=== PATIENT | male | born 1960 | race Caucasian/White ===

== ENCOUNTER 2018-02-20 09:36 | Inpatient (IN) | payer MEDICARE, OTHER ==
[~2018-02-20] VITALS: Ht 175.3 cm; Wt 83.7 kg
[2018-02-20] VITALS (14 sets, daily range): BP systolic 126–155; BP diastolic 72–92
--- NOTE | 2018-02-20 09:42 | NUR ---
[id number] FROM [facility]: SOB, HYPOXIA, COUGH, CONGESTION. ALBUTEROL 5 GIVEN IN ROUTE BY RA. A/O X4. POSITIVE PRODUCTIVE COUGH. POSITIVE WHEEZING . POSITIVE ACCESSORY MUSCLE USE. 02 SAT INCREASE FROM 85% ROOM AIR TO 96% WITH ALBUTEROL NEB TX. SAFETY MEASURE IN PLACE. CALL LIGHT WITHIN REACH.
[2018-02-20] MEDS ORDERED: DEXAMETHASONE SOD PHOSPHATE 10 MG/ML VIAL ONE (09:57)
[2018-02-20] MEDS ORDERED: ALPRAZOLAM 0.5 MG TABLET ONE (09:58)
[2018-02-20] MEDS ORDERED: HYDROCODONE/APAP 5/325MG 1 EACH TABLET ONE (09:58)
[2018-02-20] MEDS ORDERED: VANCOMYCIN 1 GM in IV D5W 250 ML IV ONE (10:00)
[2018-02-20] MEDS ORDERED: HYDROCODONE/APAP 5/325MG 1 EACH TABLET PO ONE (10:00)
[2018-02-20] MEDS ORDERED: ALBUTEROL FS 2.5 MG/3 ML VIAL.NEB NEB ONE (10:00)
[2018-02-20] MEDS ORDERED: ALPRAZOLAM 0.5 MG TABLET PO ONE (10:00)
[2018-02-20] MEDS ORDERED: IV NS 0.9% 1,000 ML BAG IV ONE (10:00)
[2018-02-20] MEDS ORDERED: IPRATROPIUM NEB FS 0.5 MG/2.5 ML AMPUL.NEB NEB ONE (10:00)
[2018-02-20] MEDS ORDERED: DEXAMETHASONE SOD PHOSPHATE 10 MG/ML VIAL IV ONE (10:00)
[2018-02-20] MEDS ORDERED: LEVOFLOXACIN 750 MG /D5W 150ML 150 ML IV ONE ×2 (10:00→10:57)
[2018-02-20 10:01] LABS: BASOPHILS # (AUTO) 0.1 /CMM (0.0-0.2); BASOPHILS % (AUTO) 0.6 % (0.0-2.0); EOSINOPHILS % (AUTO) 0.4 % (0.0-6.0); HEMATOCRIT 48 % (39-51); HEMOGLOBIN 16.4 g/dL (13.5-17.5); LYMPHOCYTES # (AUTO) 3.2 /CMM (0.8-4.8); LYMPHOCYTES % (AUTO) 26.4 % (20.0-44.0); MEAN CORPUSCULAR HGB CONC 35 g/dl (31.0-36.0); MEAN CORPUSCULAR VOLUME 96 fL (80-96); MONOCYTES # (AUTO) 1.4 /CMM (0.1-1.30); MONOCYTES % (AUTO) 11.5 % (2.0-12.0); NEUTROPHILS # (AUTO) 7.2 /CMM (1.8-8.9); NEUTROPHILS % (AUTO) 61.1 % (43.0-81.0); PLATELET COUNT (AUTO) 193 /CMM (150-450); RED BLOOD CELL COUNT(AUTO) 4.95 MIL/uL (4.5-6.0); WHITE BLOOD COUNT (AUTO) 11.9 K/uL (4.3-11.0)
[2018-02-20] MEDS ORDERED: ALBUTEROL FS 2.5 MG/3 ML VIAL.NEB ONE (10:01)
[2018-02-20] MEDS ORDERED: IPRATROPIUM NEB FS 0.5 MG/2.5 ML AMPUL.NEB ONE (10:01)
--- NOTE | 2018-02-20 10:01 | NUR ---
RT AT BEDSIDE FOR BREATHING TX.
--- NOTE | 2018-02-20 10:07 | NUR ---
18G RFA. GOOD FLUSH GOOD BLOOD RETURN.
[2018-02-20 10:11] LABS: CALCIUM, SERUM 9.3 mg/dL (8.5-10.1); CARBON DIOXIDE 25 mmol/L (21-32); CHLORIDE 100 mmol/L (98-107); CREATININE 0.8 mg/dL (0.6-1.3); GLUCOSE 134 mg/dL (74-106); POTASSIUM 3.6 mmol/L (3.5-5.1); SODIUM SERUM 136 mmol/L (136-145); UREA NITROGEN, BLOOD 11 mg/dL (7-18)
[2018-02-20 10:15] LABS: INR 0.88 (0.85-1.15)
[2018-02-20 10:16] LABS: ALANINE AMINOTRANSFERASE 63 U/L (12-78); ALBUMIN 3.6 g/dL (3.4-5.0); ALKALINE PHOSPHATASE 44 U/L (46-116); ASPARTATE AMINOTRANSFERASE 27 U/L (15-37); BILIRUBIN,DIRECT 0.2 mg/dL (0.0-0.2); BILIRUBIN,TOTAL 0.7 mg/dL (0.2-1.0)
[2018-02-20 10:18] LABS: TROPONIN I < 0.017 ng/mL (0.00-0.056)
--- NOTE | 2018-02-20 10:36 | NUR ---
PAGED DR. ARNOLD'S OFFICE
[2018-02-20] MEDS ORDERED: IMIP25TA6 PO (10:37)
[2018-02-20] MEDS ORDERED: NA P133E RC (10:37)
[2018-02-20] MEDS ORDERED: HYDR-552 PO (10:37)
[2018-02-20] MEDS ORDERED: DIVA-78 PO (10:37)
[2018-02-20] MEDS ORDERED: ACET325T53 PO (10:37)
[2018-02-20] MEDS ORDERED: TAMS0.4C34 PO (10:37)
[2018-02-20] MEDS ORDERED: ALPR2TAB7 PO (10:37)
[2018-02-20] MEDS ORDERED: OLAN5TAB3 PO (10:37)
[2018-02-20] MEDS ORDERED: ZOLP10TA6 PO (10:37)
[2018-02-20] MEDS ORDERED: OMEP20TA5 PO (10:37)
[2018-02-20] MEDS ORDERED: BISA10SU61 RC (10:37)
[2018-02-20] MEDS ORDERED: FOLI1TAB16 PO (10:37)
[2018-02-20] MEDS ORDERED: MAGN400O6 PO (10:37)
[2018-02-20] MEDS ORDERED: TOLT4CAP PO (10:37)
--- NOTE | 2018-02-20 10:52 | NUR ---
PATIENT STILL VERY TACHYPNIC, TACHYCARDIC. BREATHING HEAVY. MD INFORMED. PLACED ON 10L OXYGEN VIA SIMPLE MASK AT THIS TIME. ABG ORDERED, WILL RE-EVALUATE.
--- NOTE | 2018-02-20 11:14 | NUR ---
RT AT BEDSIDE FOR BIPAP.
[2018-02-20 11:26] LABS: ABG BASE EXCESS -4.4 mmol/L; ABG OXYGEN SATURATION 93.7 % (92.0-98.5); ABG PCO2 42.1 mmHg (35.0-45.0); ABG PH 7.324 (7.350-7.450); ABG PO2 78.5 mmHg (75.0-100.0); AaDO2 375.3 mmHg; COHb 2.3 % (0.5-1.5); MetHb 0.4 % (0.0-1.5); O2Hb 91.2 % (94.0-97.0); SITE, ABG Right Radial; VENT MODE, BG SIMPLE MASK
--- NOTE | 2018-02-20 11:29 | NUR ---
RT NOTE: LATE ENTRY- ALERT PATIENT FOUND WITH INCREASE WOB,TACHYCARDIC, AND HYPOXIC. ABG DRAWN AND REPORTED. PATIENT PLACED ON BIPAP PER 'S ORDER. PATIENT IS NOW MORE COMFORTABLE AT THIS TIME. CE05=008% AND BK=750.
[2018-02-20 11:48] LABS: APPEARANCE,URINE Clear (CLEAR); BILIRUBIN,URINE Negative (NEGATIVE); BLOOD, URINE Negative Ery/uL (NEGATIVE); COLOR,URINE Yellow (YELLOW); KETONES,URINE Trace (NEGATIVE); LEUKOCYTE ESTERASE ,URINE Negative (NEGATIVE); NITRITE, URINE Negative (NEGATIVE); PROTEIN,URINE Negative (NEGATIVE); UGLUCOSE Negative (NEGATIVE)
[2018-02-20 11:58] LABS: BACTERIA,URINE None seen /HPF (None Seen); RBC,URINE 0-2 /HPF (0-2); SQUAMOUS EPITHELIAL CELL,UR Few /HPF (None Seen); WBC,URINE 0-3 /HPF (0-3)
--- NOTE | 2018-02-20 12:13 | NUR ---
ASSIGNED TO ICU RM#: [id number] DX: RESPIRATORY FAILURE ACCEPTING MD: WILLIAM
--- NOTE | 2018-02-20 12:17 | NUR ---
REPORT GIVEN TO ADRIEL MALLOY FOR JEWELL UPON ADMISSION.
[2018-02-20 12:39] LABS: ABG BASE EXCESS -3.4 mmol/L; ABG OXYGEN SATURATION 96.4 % (92.0-98.5); ABG PCO2 39.7 mmHg (35.0-45.0); ABG PH 7.357 (7.350-7.450); AaDO2 215.8 mmHg; COHb 1.7 % (0.5-1.5); MetHb 0.5 % (0.0-1.5); O2Hb 94.3 % (94.0-97.0); SITE, ABG Right Radial; VENT MODE, BG BIPAP 15/5
--- NOTE | 2018-02-20 12:50 | NUR ---
PATIENT TRANSPORTED TO [facility] VIA ACLS PROTOCOL. RNADRIEL TO PROVIDE JEWELL.
--- NOTE | 2018-02-20 13:00 | NUR ---
PATIENT ADMITTED FROM ER WITH DX OF RESPIRATORY FAILURE, ACUTE RESCUE BIPAP. AWAKE, ALERT AND ORIENTED. VERBALIZED IMPROVED BREATHING. CONNECTED TO BIPAP BY RT.
[2018-02-20] MEDS ORDERED: IPRATROPIUM NEB FS 0.5 MG/2.5 ML AMPUL.NEB NEB PRN (14:00)
[2018-02-20] MEDS ORDERED: ALBUTEROL FS 2.5 MG/0.5 ML VIAL.NEB NEB PRN (14:00)
--- NOTE | 2018-02-20 14:00 | NUR ---
WEANED OFF BIPAP BY RT. PLACED ON O2 AT 6 L N/C. HOB ELEVATED. SPO2 >95%.
[2018-02-20] MEDS ORDERED: BISACODYL SUPP (10 MG) 10 MG/SUPP.RECT SUPP.RECT RC PRN (15:00)
[2018-02-20] MEDS ORDERED: NA PHOS,M-B/NA PHOS,DI-BA 1 EA ENEMA RC PRN (15:00)
[2018-02-20] MEDS: DIVALPROEX SODIUM 500 MG TABLET.DR PO SCH (16:40)
[2018-02-20] MEDS: methylPREDNISolone SOD SUCC 40 MG/ML VIAL IV SCH (16:40)
[2018-02-20] MEDS: ALPRAZOLAM 1 MG TABLET PO SCH (16:41)
[2018-02-20] MEDS: OLANZAPINE 5 MG TABLET PO SCH (16:41)
[2018-02-20] MEDS: TAMSULOSIN 0.4 MG CAP.SR.24H PO SCH (17:17)
[2018-02-20] MEDS: ZOSYN IVPB 3.375 G in IV D5W 50ml IV SCH ×2 (17:17→23:45)
--- NOTE | 2018-02-20 18:00 | NUR ---
REMAINS OFF BIPAP. NO VERBAL C/O SOB. SPO2>94%. NO DISTRESS NOTED.
[2018-02-20] MEDS: HYDROCODONE/APAP 5/325MG 1 EACH TABLET PO PRN ×2 (18:01→23:46)
--- NOTE | 2018-02-20 19:30 | NUR ---
RN NOTE RECEIVED PT ASLEEP ON BED, BREATHING EVEN AND UNLABORED. TOLERATED O2 6LPM VIA NC SATURATING 94% AOX3 RESPONSIVE TO TACTILE AND VERBAL STIMULI. ABLE TO VERBALIZED NEEDS WHEN AWAKE. TELE MONITOR READS SR HR 80 IV SITE ON LFA AND RFA G 18 INTACT AND PATENT. AFEBRILE. KEPT PT CLEAN AND DRY. CALL LIGHT KEPT WITHIN EASY REACH. WILL CONTINUE TO MONITOR.
--- NOTE | 2018-02-20 21:24 | NUR ---
PT ON 6L NC. NO SOB. O2 SAT 95%. PT IS SLEEPING. WILL CONTINUE TO MONITOR. BIPAP S/B.
[2018-02-20] MEDS ORDERED: MAGNESIUM HYDROXIDE 30 ML UDC PO PRN (22:00)
[2018-02-20] MEDS ORDERED: ZOLPIDEM TARTRATE 10 MG TABLET PO SCH (22:00)
--- NOTE | 2018-02-20 23:00 | NUR ---
RN NOTES O2 CHANGED TO 4LPM VIA NC TOLERATED WELL SATURATING 94%.
[2018-02-21] VITALS (23 sets, daily range): BP systolic 114–166; BP diastolic 73–90
[2018-02-21 04:38] LABS: BASOPHILS % (AUTO) 0.4 % (0.0-2.0); HEMATOCRIT 45 % (39-51); HEMOGLOBIN 15.2 g/dL (13.5-17.5); LYMPHOCYTES # (AUTO) 1.2 /CMM (0.8-4.8); LYMPHOCYTES % (AUTO) 13.9 % (20.0-44.0); MEAN CORPUSCULAR HGB CONC 34 g/dl (31.0-36.0); MEAN CORPUSCULAR VOLUME 100 fL (80-96); MONOCYTES # (AUTO) 0.4 /CMM (0.1-1.30); MONOCYTES % (AUTO) 4.7 % (2.0-12.0); PLATELET COUNT (AUTO) 187 /CMM (150-450); RDW COEFFICIENT OF VARIATION 13.8 (11.5-15.0); RED BLOOD CELL COUNT(AUTO) 4.48 MIL/uL (4.5-6.0); WHITE BLOOD COUNT (AUTO) 8.6 K/uL (4.3-11.0)
[2018-02-21 05:16] LABS: CALCIUM, SERUM 8.4 mg/dL (8.5-10.1); CREATININE 0.8 mg/dL (0.6-1.3); POTASSIUM 4.6 mmol/L (3.5-5.1)
[2018-02-21] MEDS: ZOSYN IVPB 3.375 G in IV D5W 50ml IV SCH (05:57)
[2018-02-21] MEDS: HYDROCODONE/APAP 5/325MG 1 EACH TABLET PO PRN ×3 (05:58→20:58)
--- NOTE | 2018-02-21 06:55 | NUR ---
RN NOTES PT ASLEEP WELL AT NIGHT WOKE UP AND COMPLAINED OF PAIN AT SCALE OF 8/10 ON HIS LEFT HIP .PRN PAIN MEDICINE ADMINISTERED ORDERED EFFECTIVE AFTER 30 MINUTES. O2 4LPM VIA NC MARILYN. WELL SATURATION BETWEEN 90-94%, PT IS COMPLIANT OF CARE ALL NEEDS ATTENDED. WILL ENDORSED CONTINUITY OF CARE TO AM NURSE.
[2018-02-21] MEDS: ALPRAZOLAM 1 MG TABLET PO SCH ×3 (08:10→17:10)
[2018-02-21] MEDS: TOLTERODINE 2 MG CAP.SR PO SCH (08:10)
[2018-02-21] MEDS: methylPREDNISolone SOD SUCC 40 MG/ML VIAL IV SCH ×3 (08:10→17:10)
[2018-02-21] MEDS: DIVALPROEX SODIUM 500 MG TABLET.DR PO SCH ×2 (08:11→17:10)
[2018-02-21] MEDS: PANTOPRAZOLE 40 MG TABLET.DR PO SCH (08:11)
[2018-02-21] MEDS: OLANZAPINE 5 MG TABLET PO SCH ×2 (08:11→17:10)
[2018-02-21] MEDS: FOLIC ACID 1 MG TABLET PO SCH (08:11)
[2018-02-21] MEDS: IMIPRAMINE 25 MG TABLET PO SCH (09:00)
--- NOTE | 2018-02-21 09:00 | NUR ---
S/E BY DR. ROBERTS. SPOKE TO PATIENT REGARDING CONDITION.
[2018-02-21] MEDS: ACETAMINOPHEN 325 MG TABLET PO PRN (09:39)
[2018-02-21] MEDS: GUAIFENESIN LA 600 MG TABLET.SA PO SCH ×2 (10:26→20:57)
--- NOTE | 2018-02-21 11:15 | NUR ---
S/E BY DR. ZORAIDA WHITTINGTON TO DOWNGRADE TO TELE.
[2018-02-21] MEDS: PIPERACILLIN /TAZOBACTAM 4.5 G in IV D5W 50 ML IV SCH ×2 (12:20→17:10)
--- NOTE | 2018-02-21 16:00 | NUR ---
RESTING COMFORTABLY. NO DISTRESS NOTED.
[2018-02-21] MEDS: TAMSULOSIN 0.4 MG CAP.SR.24H PO SCH (17:10)
[2018-02-21] MEDS: ALBUTEROL FS 2.5 MG/0.5 ML VIAL.NEB NEB SCH ×2 (17:23→19:55)
[2018-02-21] MEDS: IPRATROPIUM NEB FS 0.5 MG/2.5 ML AMPUL.NEB NEB SCH ×2 (17:23→19:55)
--- NOTE | 2018-02-21 19:30 | NUR ---
RN NOTES PT RECEIVED ASLEEP ON BED. WITH O2 4LPM VIA NC SATURATING 92%. AOX3 WHEN AWAKE. WHEEZING BREATH SOUND HEARD. AFEBRILE. VS WNL. TELE MONITOR REVEALS SR IV SITE REMAINED INTACT AND PATENT ON LFA G 18 AND RFA G 18 HL. PT IS ABLE TO MOVE INDEPENDENTLY ON BED. CALL LIGHT WITHIN EASY REACH INSTRUCTED TO USED WHEN NEED ASSISTANCE KEPT PT CLEAN AND DRY. WILL CONTINUE TO MONITOR.
--- NOTE | 2018-02-21 20:20 | NUR ---
OBSERVER HELPER NOTES RECEIVED PT FROM ICU, ENDORSED BY GAMA BAGLEY. PT IS RESTING COMFORTABLY AT THIS TIME, AROUSES EASILY, A/O X 3, VERBALLY RESPONSIVE. NO DISTRESS, NO SOB NOTED.RESPIRATION IS EVEN UNLABORED. ON 02 @ 5LPM AMELIE NC MARILYN WELL, 02 SAT IS 94 % AT THIS TIME. IV SITE ON LFA AND RFA INTACT AND PATENT, NO S/S OF INFILTRATION NOTED. PT WITH NO C/O PAIN R DISCOMFORT AT THIS TIME. SKIN IS INTACT. SAFETY PRECAUTIONS OBSERVED. CALL LIGHT WITHIN REACH. WILL CONTINUE TO MONITOR.
--- NOTE | 2018-02-21 20:25 | NUR ---
RN NOTES PT TRANSFER TO ROOM 118-2 REPORT GIVEN TO EMMA RN FOR CONTINUITY OF CARE. PT TRANSFER IN STABLE CONDITION BREATHING TX. GIVEN BY RT. VS STABLE . SATURATING 95% ON O2 4LPM VIA NC WITHOUT SOB OR ACUTE RESP DISTRESS.
--- NOTE | 2018-02-21 20:45 | NUR ---
PT ON SR 86 ON TELE MONITOR.
[2018-02-22] VITALS: BP 121/74
[2018-02-22] MEDS: PIPERACILLIN /TAZOBACTAM 4.5 G in IV D5W 50 ML IV SCH ×5 (00:32→23:25)
[2018-02-22] MEDS: IPRATROPIUM NEB FS 0.5 MG/2.5 ML AMPUL.NEB NEB SCH ×4 (00:52→20:15)
[2018-02-22] MEDS: ALBUTEROL FS 2.5 MG/0.5 ML VIAL.NEB NEB SCH ×4 (00:52→20:15)
[2018-02-22] MEDS: HYDROCODONE/APAP 5/325MG 1 EACH TABLET PO PRN ×5 (01:15→23:26)
[2018-02-22 04:00] VITALS: BP 132/77
--- NOTE | 2018-02-22 06:56 | NUR ---
MEETING FACILITATOR NOTES PT IN BED, RESTING COMFORTABLY AT THIS TIME, AROUSES EASILY, A/O X 3, VERBALLY RESPONSIVE. NO DISTRESS, NO SOB NOTED.RESPIRATION IS EVEN UNLABORED. ON 02 @ 5LPM VIA NC MARILYN WELL, 02 SAT IS 94 % AT THIS TIME. IV SITE ON LFA AND RFA INTACT AND PATENT, NO S/S OF INFILTRATION NOTED. DUE MEDS GIVEN. PT WITH NO C/O PAIN R DISCOMFORT AT THIS TIME. SKIN IS INTACT. SAFETY PRECAUTIONS OBSERVED. CALL LIGHT WITHIN REACH. WILL EMNDORSE TO NEXT SHIFT FOR JEWELL.
--- NOTE | 2018-02-22 07:10 | NUR ---
COST CONTROLLER NOTES RECEIVED PT IN BED IN SEMI TURNER POSITION, ALERT, NO AUTE DISTRESS NOTED, ON 5LPM O2 VIA NC, TOLERATING WELL, SR ON TELE MONITOR, NO C/O PAIN AT THIS TIME, INTACT AND PATENT SL ON LFA AND RFA. SAFETY MEASURES OBSERVED, CALL LIGHT WITHIN REACH, WILL CONT TO MONITOR
[2018-02-22 08:00] VITALS: BP 125/69
[2018-02-22] MEDS: PANTOPRAZOLE 40 MG TABLET.DR PO SCH (08:07)
[2018-02-22] MEDS: TOLTERODINE 2 MG CAP.SR PO SCH (09:38)
[2018-02-22] MEDS: FOLIC ACID 1 MG TABLET PO SCH (09:38)
[2018-02-22] MEDS: methylPREDNISolone SOD SUCC 40 MG/ML VIAL IV SCH ×3 (09:38→16:27)
[2018-02-22] MEDS: GUAIFENESIN LA 600 MG TABLET.SA PO SCH ×2 (09:38→20:04)
[2018-02-22] MEDS: OLANZAPINE 5 MG TABLET PO SCH ×2 (09:38→16:27)
[2018-02-22] MEDS: ALPRAZOLAM 1 MG TABLET PO SCH ×3 (09:38→16:27)
[2018-02-22] MEDS: DIVALPROEX SODIUM 500 MG TABLET.DR PO SCH ×2 (09:38→16:27)
[2018-02-22] MEDS: IMIPRAMINE 25 MG TABLET PO SCH (10:52)
[2018-02-22 12:00] VITALS: BP 124/82
[2018-02-22] MEDS: ACETAMINOPHEN 325 MG TABLET PO PRN (15:41)
[2018-02-22 16:00] VITALS: BP 129/76
[2018-02-22] MEDS: TAMSULOSIN 0.4 MG CAP.SR.24H PO SCH (17:34)
--- NOTE | 2018-02-22 19:25 | NUR ---
TV HOST NOTE PATIENT RECEIVED AOX3, ON TELE SR 80'S, NO S/SX OF RESPIRATORY OR CARDIAC DISTRESS, ON 5L NC, SPEECH CLEAR, DENIES ANY PAIN. RFA #18G AND LFA #18G SL. SITES CDI, PATENT FLUSHING WELL. SKIN KEPT CLEAN AND DRY. SAFETY MAINTAINED AT ALL TIMES, BED IN LOW LOCKED POSITION, CALL LIGHT WITHIN REACH, WILL CONTINUE TO MONITOR FOR ANY CHANGES IN CONDITION.
--- NOTE | 2018-02-22 19:33 | NUR ---
RN CLOSING NOTES PT REMAINED IN STABLE CONDITION, PT ASLEEP IN NO SIGNS OF ACUTE DISTRESS, SAFETY MEASURES OBSERVED AT ALL TIMES, ALL NEEDS ATTENDED, ENDORSED TO PM SHIFT NURSE FOR JEWELL
[2018-02-22 20:00] VITALS: BP 118/75
[2018-02-23] VITALS: BP 122/76
[2018-02-23] MEDS: ALBUTEROL FS 2.5 MG/0.5 ML VIAL.NEB NEB SCH ×3 (01:42→15:22)
[2018-02-23] MEDS: IPRATROPIUM NEB FS 0.5 MG/2.5 ML AMPUL.NEB NEB SCH ×3 (01:42→15:22)
[2018-02-23 04:00] VITALS: BP 120/73
[2018-02-23] MEDS: PIPERACILLIN /TAZOBACTAM 4.5 G in IV D5W 50 ML IV SCH ×2 (05:32→12:21)
[2018-02-23] MEDS: HYDROCODONE/APAP 5/325MG 1 EACH TABLET PO PRN ×2 (07:46→13:40)
[2018-02-23] MEDS: PANTOPRAZOLE 40 MG TABLET.DR PO SCH (07:46)
--- NOTE | 2018-02-23 07:59 | NUR ---
RN NOTE: PATIENT RECEIVED ALERT AWAKE ORIENTED. ON 4LPM O2 VIA NC, NO RESPIRATORY DISTRESS NOTED. IV SITE INTACT, DRESSING DRY & CLEAN. SAFETY MEASURES OBSERVED. CALL LIGHT WITHIN REACH. C/O PAIN, NORCO GIVEN, WILL CONTINUE TO MONITOR.
[2018-02-23 08:00] VITALS: BP 123/81
[2018-02-23] MEDS: TOLTERODINE 2 MG CAP.SR PO SCH (08:09)
[2018-02-23] MEDS: methylPREDNISolone SOD SUCC 40 MG/ML VIAL IV SCH ×3 (08:09→16:24)
[2018-02-23] MEDS: ALPRAZOLAM 1 MG TABLET PO SCH ×3 (08:09→16:25)
[2018-02-23] MEDS: DIVALPROEX SODIUM 500 MG TABLET.DR PO SCH ×2 (08:09→16:24)
[2018-02-23] MEDS: FOLIC ACID 1 MG TABLET PO SCH (08:09)
[2018-02-23] MEDS: OLANZAPINE 5 MG TABLET PO SCH ×2 (08:10→16:24)
[2018-02-23] MEDS: IMIPRAMINE 25 MG TABLET PO SCH (08:10)
[2018-02-23] MEDS: GUAIFENESIN LA 600 MG TABLET.SA PO SCH (08:10)
[2018-02-23 12:00] VITALS: BP 140/82
[2018-02-23 16:00] VITALS: BP 128/76
--- NOTE | 2018-02-23 16:45 | NUR ---
RN NOTE: PATIENT TRANSFERRED/DISCHARGE TO [facility], ALERT AWAKE ORIENTED 3-4, ON ROOM AIR, NO BREATHING DIFFICULTY NOTED. CONTINUE WITH PAIN MANAGEMENT PRN MEDICATION ORDERED NOTED EFFECTIVE. REPORT GIVEN TO SHARYN MALLOY. IV CATH REMOVED. , APPLIED PRESSURE DRESSING. PICKED UP BY [facility] MATERIAL CONTROL SUPERVISOR WITH ALL BELONGINGS FORM FLOOR.
== END 2018-02-23 16:45 | DRG 871 ==
LOC: ER 09:42 → ICU 12:23 → TELE1 02-21 20:13
PROVIDERS: ADMIT Internal Medicine Nephrology; ATTEND Internal Medicine Nephrology
PROC: 5A09357 Assistance with Respiratory Ventilation, Less than 24 Consecutive Hours, Continuous Positive Airway Pressure (ICD-10-PCS; principal; 2018-02-20)
DX: A41.9 Sepsis, unspecified organism (principal); J18.9 Pneumonia, unspecified organism; J96.01 Acute respiratory failure with hypoxia; J44.0 Chronic obstructive pulmonary disease with (acute) lower respiratory infection; J44.1 Chronic obstructive pulmonary disease with (acute) exacerbation; J98.11 Atelectasis; R65.20 Severe sepsis without septic shock; G40.909 Epilepsy, unspecified, not intractable, without status epilepticus; N40.0 Benign prostatic hyperplasia without lower urinary tract symptoms; F17.200 Nicotine dependence, unspecified, uncomplicated; K21.9 Gastro-esophageal reflux disease without esophagitis; T17.990A Other foreign object in respiratory tract, part unspecified in causing asphyxiation, initial encounter; X58.XXXA Exposure to other specified factors, initial encounter; Y93.9 Activity, unspecified; Y92.129 Unspecified place in nursing home as the place of occurrence of the external cause; I10 Essential (primary) hypertension; F29 Unspecified psychosis not due to a substance or known physiological condition; F20.9 Schizophrenia, unspecified
CPT/HCPCS: 36415; 36600; 71045-TC; 80048-TC; 80076-TC; 81000-TC; 82803-TC; 83605-TC; 84484-TC; 85025-TC; 85730-TC; 87040-TC; 87081-TC; 87086-TC; 94799-TC; A4216; A4606; J1100; J1956; J2543; J2920; J3370; J7030; J7040; J7060; Z7610